=== PATIENT | female | born 1960 | race Caucasian/White ===

== ENCOUNTER 2025-10-20 13:37 | Outpatient (AMB) | payer OTHER, SELFPAY ==
--- NOTE | 2025-10-20 13:39 | MHC.PC.OV ---
Vital Signs 10/20/25 13:40 Height 5 ft 3.25 in Weight 121 lb 6 oz BMI 21.3 BP 120/70 Blood Pressure Location Rt brachial Position Sitting Respiration 16 Pulse 74 Pulse Source Pulse Oximeter Temp 96.9 F Temp Source Temporal Artery Scan Pulse Oximetry (%) 97 Oxygen Delivery Method Room Air Intake Visit Reasons: f/u arthritis, melanoma, left eye going blind Nitric Acid Concentrator Operator Required: No Accompanied by: Self / Same As Patient Allergies celecoxib (From Celebrex) Adverse Reaction (Severe, Verified 10/20/25 13:39) mental status change Penicillins Adverse Reaction (Severe, Verified 10/20/25 13:39) Anaphylaxis morphine Adverse Reaction (Intermediate, Verified 10/20/25 13:42) Nausea and Vomiting Sulfa (Sulfonamide Antibiotics) Adverse Reaction (Intermediate, Verified 10/20/25 13:42) Hives tetracycline Adverse Reaction (Intermediate, Verified 10/20/25 13:39) Nausea and Vomiting Medication List - Last Reconciled 10/20/25 by Juana Espino MD ketorolac 0.5% 1 drp ophthalmic (eye) BID lorazepam 0.5 mg (1/2 x 1 mg) PO DAILY PRN 14 days pravastatin 20 mg PO DAILY sertraline 100 mg PO DAILY timolol maleate 0.5% 1 drp ophthalmic (eye) BID trazodone 100 mg PO BEDTIME Tobacco use date assessed: 10/20/25 Fall risk assessment: No Falls in past year Last assessed Fall Risk: 10/20/25 Dental Screening Dental Screen Date: 10/20/25 Did you have a dental visit in the last 12 months?: Yes Did you have a dental problem in the last 6 months where you did not have access to dental care?: No Was dental information given to patient?: Patient has dentist HPI HPI Comments History of Present Illness Details The patient is a 65 year old female presenting to re-establish care and for management of multiple chronic conditions. Melanoma: The patient has a history of multiple melanomas with additional removals from the thigh and left tibia, and is awaiting results from a recent biopsy. A follow-up with dermatology is scheduled for November. Goes to [facility] in [place]. The patient is not taking a prescribed oral medication from dermatology due to concerns about side effects. Ophthalmic Conditions: The patient has poor vision in left eye and is scheduled for cataract surgery and glaucoma stent placement in the left eye tomorrow, with cataract surgery for the right eye scheduled in two weeks. The patient uses timolol eye drops for glaucoma. Chronic Back/Shoulder Pain and Hip Pain: The patient reports a recent flare-up of back pain, currently rated at a 5/10, which affects sitting posture. The pain is mainly located in the hip and SI joint area, and the patient denies any burning or sharp pain radiating down the legs. The patient receives cortisone shots from an mass spectrometry specialist, which last about two to three months. For self-management, the patient uses a heating pad, a copper-infused belt, and topical patches. Tizanidine is used as needed, which provides some relief. Hyperlipidemia: The patient has a known history of high cholesterol and reports being adherent to pravastatin, which is taken with a CoQ10 supplement. The patient reports poor dietary habits. Mental Health (Insomnia, Anxiety, Depression): The patient takes trazodone every night for sleep and reports being unable to sleep without it, experiencing stomach churning and sickness on one occasion when it was missed. The patient takes sertraline for depression and takes lorazepam as needed for acute anxiety, which manifests as feeling unable to breathe. There are significant social stressors related to the patient's living situation and family conflicts. She is established with psychologist Dr. Cottrell. SVT- occasional palpitations [facility] Medical History (Updated 10/20/25 @ 17:26 by Juana Espino MD) Encounter for screening colonoscopy Insomnia Routine medical exam PTSD (post-traumatic stress disorder) Osteopenia SVT (supraventricular tachycardia) Mixed hyperlipidemia Depression with anxiety Basal cell carcinoma Melanoma Surgical History (Updated 10/20/25 @ 10:58 by Juana Espino MD) H/O vein stripping History of bowel resection H/O tubal ligation History of colonoscopy (~02/05/14) Social History Housing: House Patient Tobacco Use Status: Former Tobacco user Years Smoked: 10-15 years e-Cigarette/Vaping Use: Currently Using service: No Current occupational status: retired Questionnaire AUDIT C Alcohol Use Questionnaire (AUDIT-C) 1. How often do you have a drink containing alcohol?: Monthly or less 2. How many drinks containing alcohol do you have on a typical day when you are drinking?: 1 or 2 Total Score: 1 Review of Systems Narrative Review of Systems - Constitutional: Reports insomnia without medication. - Eyes: per hpi - Cardiovascular: occasional palpitations. - Gastrointestinal: negative - Musculoskeletal: Reports severe arthritis, joint pain, tight muscles, and a back pain flare-up rated 5/10. - Integumentary: per hpi - Neurological: Denies burning or sharp pain radiating down the legs. - Psychiatric: per hpi Physical exam (Primary Care) Vital Signs: Last Vital Signs Temp 96.9 F 10/20/25 13:40 Pulse 74 10/20/25 13:40 Resp 16 10/20/25 13:40 BP 120/70 10/20/25 13:40 Pulse Ox 97 10/20/25 13:40 Oxygen Delivery Method Room Air 10/20/25 13:40 BMI result Body Mass Index 21.3 Tobacco/Smoking Status: Tobacco use Status Tobacco use date assessed 10/20/25 10/20/25 13:47 Patient Tobacco Use Status Former Tobacco user 10/20/25 13:47 e-Cigarette/Vaping Use Currently Using (vape 10/20/25 13:47 marijuana) Narrative Physical Exam - General: Patient sits uncomfortably due to back pain. - Lungs: Clear to auscultation bilaterally. - Cardiovascular: Normal rhythm with murmur auscultated. - Abdomen: Nondistended and nontender. Normal bowel sounds. - Extremities: No lower extremity edema. - Skin: A purple bruise is noted on the ear. Coding Level of Care Code Est Pt Level 4 (76856) Complex visit Add On G2211 Diagnoses Mixed hyperlipidemia E78.2 Depression with anxiety F41.8 Insomnia, unspecified type G47.00 Insomnia type: unspecified Malignant melanoma, unspecified site C43.9 Melanoma location: unspecified site Assessment & Plan Assessment & Plan (1) Mixed hyperlipidemia: Code(s): E78.2 - Mixed hyperlipidemia Category: Medical (2) Depression with anxiety: Code(s): F41.8 - Other specified anxiety disorders Category: Medical (3) Insomnia: Code(s): G47.00 - Insomnia, unspecified Category: Medical Qualifiers: Insomnia type: unspecified Qualified Code(s): G47.00 - Insomnia, unspecified (4) Melanoma: Code(s): C43.9 - Malignant melanoma of skin, unspecified Category: Medical Qualifiers: Melanoma location: unspecified site Qualified Code(s): C43.9 - Malignant melanoma of skin, unspecified Plan Assessment and Plan 1. History of Melanoma The patient is actively followed by dermatology. The patient is concerned about prescribed oral medication due to severe concerns about side effects. Plan is for the patient to discuss these concerns and potential alternative treatments with the central sterile technician. 2. Cataracts and Glaucoma Upcoming ophthalmic surgeries were reviewed. The patient was cautioned that repetitive steroid injections for other conditions can increase intraocular pressure and was advised to inform other specialists of the glaucoma diagnosis. 3. Chronic Back Pain The patient is experiencing a pain flare. The plan is to attempt a 3-day course of nightly tizanidine after the upcoming eye surgery to help break the pain cycle. 5. Hyperlipidemia The patient is taking pravastatin and CoQ10. Plan is to check a fasting lipid panel and comprehensive metabolic panel after recovery from surgery. 6. Insomnia, Anxiety, and Depression The patient's complex psychosocial stressors were acknowledged. Continue current regimen 7. Preventive Care The patient is due for colon cancer screening. A referral will be placed for a colonoscopy. - Follow up in December for physical Plan - Prescriptions for sertraline and lorazepam as needed sent to pharmacy - Continue trazodone for sleep - Placed orders for fasting labs (cholesterol profile, kidney and liver function) to be done after surgical recovery. - Recommended a 3-day course of nightly tizanidine for back pain after the patient recovers from eye surgery. - Placed a referral for a screening colonoscopy. - Advised patient to discuss medication concerns with the central sterile technician. - Advised patient to inform mass spectrometry specialist about glaucoma diagnosis due to steroid injection use. - Encouraged patient to stay hydrated. Discussion Notes I reviewed the patient's extensive and complex medical history during this visit to re-establish care. We discussed management of the chronic back pain flare, and I recommended a trial of tizanidine for three consecutive nights after eye surgery to break the pain cycle. The patient expressed significant concerns regarding the side effects of a prescribed oral medication for melanoma, and I acknowledged these as valid, advising a discussion with the central sterile technician about alternatives. I provided refills for sertraline and lorazepam (PRN), and confirmed the patient would continue taking trazodone for sleep. Patient Instructions - After you recover from your eye surgeries, take your tizanidine medication for three nights in a row to help with your back pain. - A referral has been made for you to get a colonoscopy for cancer screening. The specialist's office will call you to schedule it. - Talk to your skin doctor about your concerns with the side effects of the medication they prescribed for you. - Stay well-hydrated by drinking plenty of water. Orders: Orders Comprehensive Met. Panel Today E78.2 - Mixed hyperlipidemia, Z00.00 - Encounter for general adult medical examination without abnormal findings Lipid Panel Today E78.2 - Mixed hyperlipidemia, Z00.00 - Encounter for general adult medical examination without abnormal findings Complete Blood Count Auto Diff Today E78.2 - Mixed hyperlipidemia, Z00.00 - Encounter for general adult medical examination without abnormal findings Hemoglobin A1c Today E78.2 - Mixed hyperlipidemia, Z00.00 - Encounter for general adult medical examination without abnormal findings Referrals Gastroenterology Referral C43.9 - Malignant melanoma of skin, unspecified, Z12.11 - Encounter for screening for malignant neoplasm of colon Medications: New lorazepam 0.5 mg (1/2 x 1 mg) PO DAILY PRN 30 tabs 5RF anxiety 14 days sertraline 100 mg PO DAILY 90 tabs 3RF coenzyme Q10 (Co Q-10) 100 mg PO DAILY
[2025-10-20 13:40] VITALS: BP 120/70; PULSE 74; RESP 16; TEMP 36.1; O2SAT 97; BMI 21.3
== END 2025-10-20 14:25 | disposition home or self-care (01) ==
PROVIDERS: PCP Internal Medicine; Visit Provider Internal Medicine
DX: E78.2 Mixed hyperlipidemia (principal); F41.8 Other specified anxiety disorders; G47.00 Insomnia, unspecified; C43.9 Malignant melanoma of skin, unspecified

== ENCOUNTER → 2025-10-20 13:37 | Outpatient (BNVA) | payer OTHER, SELFPAY | PROVIDERS: PCP Internal Medicine; Visit Provider Internal Medicine | DX: E78.2 Mixed hyperlipidemia (principal); F41.8 Other specified anxiety disorders; G47.00 Insomnia, unspecified; H26.9 Unspecified cataract; H40.9 Unspecified glaucoma; M54.9 Dorsalgia, unspecified; G89.29 Other chronic pain; Z85.820 Personal history of malignant melanoma of skin | CPT/HCPCS: 99212 ==

== ENCOUNTER 2025-10-27 08:00 | Outpatient (REF) | payer OTHER, SELFPAY ==
[2025-10-27 13:49] LABS: MANUAL DIFF FLAG NO
[2025-10-27 14:16] LABS: Alanine Aminotransferase 36 U/L (0-31); Albumin Level 4.4 g/dL (3.5-5.0); Alkaline Phosphatase 71 U/L (39-117); Anion Gap 11 (12-20); Aspartate Amino Transferase 31 U/L (5-31); Blood Urea Nitrogen 18 mg/dL (9-16); Calcium 9.6 mg/dL (8.4-10.2); Carbon Dioxide 31 mmol/L (22-29); Chloride 106 mmol/L (96-108); Cholesterol 283 mg/dL (<200); Estimated Glomerular Filt Rate > 60; HDL Cholesterol 50 mg/dL (>40); Potassium 4.6 mmol/L (3.3-5.1); Sodium 143 mmol/L (135-145); Total Protein 6.7 g/dL (6.5-8.0); Triglycerides 159 mg/dL (<150)
[2025-10-27 14:22] LABS: Hematocrit 43.4 % (37.0-47.0); Hemoglobin 14.2 g/dl (12.0-16.0); Imm Gran Abs Auto 0.03 X10*3/uL (0.00-0.03); Imm Gran Pct Auto 0.4 % (0.0-0.4); Lymphocytes Absolute Auto 1.6 X10*3/uL (1.2-4.9); Mean Corpuscular HGB Conc 32.7 g/dl (31.0-35.0); Mean Corpuscular Hemoglobin 29.8 pg (27.0-33.0); Mean Corpuscular Volume 91.2 fL (80.0-98.0); NRBC Abs Auto 0.000 X10*3/uL (0.0-0.012); NRBC Pct Auto 0.0 /100WBC (0.0-0.2); Platelet Count 317 X10*3/uL (160-400); Red Blood Count 4.76 X10*6/uL (4.20-5.50); White Blood Count 7.8 X10*3/uL (4.8-10.8)
== END 2025-10-27 08:01 | disposition home or self-care (01) ==
LOC: HO.HKASLDS 08:00
PROVIDERS: PCP Internal Medicine; Visit Provider Internal Medicine
DX: Z00.00 Encounter for general adult medical examination without abnormal findings (principal); E78.2 Mixed hyperlipidemia; Z13.1 Encounter for screening for diabetes mellitus
CPT/HCPCS: 36415; 80053; 80061; 83036; 85025